=== PATIENT | female | born 1955 | race African-American/Black ===

== ENCOUNTER 2021-06-11 13:43 | Emergency (ER) | payer MEDICARE, OTHER ==
[~2021-06-11] VITALS: Ht 157.5 cm; Wt 58.9 kg
[2021-06-11 17:18] VITALS: BP 169/65
[2021-06-11] MEDS ORDERED: TRAM-48 PO (19:09)
--- NOTE | 2021-06-11 19:10 | PHYS DOC ---
Past Medical History Past Medical History: No Pertinent History Past Surgical History: No Surgical History Additional Past Surgical Histo: teeth extractions Smoking Status: Current Every Day Smoker Alcohol Use: Heavy Additional Information: DRINKS BEER DAILY Drug Use: None General Adult EDM: Chief Complaint: LOWER EXT PAIN HPI: HPI: Patient is a 65 year old female past medical history hypertension presents with a chief complaint of bilateral feet pain and swelling. Patient states symptoms been ongoing for 3 months progressively becoming worse. Patient denies any trauma. Examination of patient's feet shows very minimal swelling. I do not appreciate any deformities cap refill less than 2 seconds and pulses are palpable. Patient has no swelling in the calves. Review of Systems: Review of Systems: Constitutional: Denies fever or chills. [] Eyes: Denies change in visual acuity. [] HENT: Denies nasal congestion or sore throat. [] Respiratory: Denies cough or shortness of breath. [] Cardiovascular: Denies chest pain or edema. [] GI: Denies abdominal pain, nausea, vomiting, bloody stools or diarrhea. [] : Denies dysuria. [] Musculoskeletal: Positive foot pain positive feet swelling Integument: Denies rash. [] Neurologic: Denies headache, focal weakness or sensory changes. [] Endocrine: Denies polyuria or polydipsia. [] Lymphatic: Denies swollen glands. [] Psychiatric: Denies depression or anxiety. [] Heart Score: C/O Chest Pain: N/A Risk Factors: Risk Factors: DM, Current or recent (<one month) smoker, HTN, HLP, family history of CAD, obesity. Risk Scores: Score 0 - 3: 2.5% MACE over next 6 weeks - Discharge Home Score 4 - 6: 20.3% MACE over next 6 weeks - Admit for Clinical Observation Score 7 - 10: 72.7% MACE over next 6 weeks - Early Invasive Strategies Allergies: Allergies: Allergies Coded Allergies Type Severity Reaction Last Updated Verified No Known Drug Allergies 10/18/13 No Physical Exam: PE: Constitutional: Well developed, well nourished, no acute distress, non-toxic appearance. [] HENT: Normocephalic, atraumatic, bilateral external ears normal, oropharynx moist, no oral exudates, nose normal. [] Eyes: PERRLA, EOMI, conjunctiva normal, no discharge. [] Neck: Normal range of motion, no tenderness, supple, no stridor. [] Cardiovascular:Heart rate regular rhythm, no murmur [] Lungs & Thorax: Bilateral breath sounds clear to auscultation [] Abdomen: Bowel sounds normal, soft, no tenderness, no masses, no pulsatile masses. [] Skin: Warm, dry, no erythema, no rash. [] Back: No tenderness, no CVA tenderness. [] Extremities: No tenderness, no cyanosis, no clubbing, ROM intact, no edema. [Very minimal pedal swelling cap refill less than 2 seconds palpable pulses no deformities no open wounds] Neurologic: Alert and oriented X 3, normal motor function, normal sensory function, no focal deficits noted. [] Psychologic: Affect normal, judgement normal, mood normal. [] Current Patient Data: Vital Signs: Vital Signs Date Time Temp Pulse Resp B/P (MAP) Pulse Ox O2 Delivery O2 Flow Rate FiO2 06/11/21 17:18 98.5 67 16 169/65 97 98.5 EKG: EKG: [] Radiology/Procedures: Radiology/Procedures: [] Course & Med Decision Making: Course & Med Decision Making Pertinent Labs and Imaging studies reviewed. (See chart for details) [] Dragon Disclaimer: Dragon Disclaimer: This electronic medical record was generated, in whole or in part, using a voice recognition dictation system. Departure Departure Impression: Primary Impression: Foot pain, bilateral Disposition: 01 HOME / SELF CARE / HOMELESS Condition: STABLE Referrals: NO PCP (PCP) Patient Instructions: Musculoskeletal Pain Additional Instructions: Foot Pain Scripts Tramadol Hcl (ULTRAM) 50 Mg Tablet 1 TAB PO PRN Q6HRS PRN for pain MDD 4 Tablet(s) for 7 Days, #28 TAB 0 Refills Prov: JOLLY SQUIRES DO 06/11/21 JOLLY SQUIRES DO Jun 11, 2021 19:10
[2021-06-11 19:23] LABS: BASO % 1 % (0-3); EOS # 0.1 x10^3/uL (0.0-0.7); EOS % 1 % (0-3); HEMOGLOBIN 16.3 g/dL (12.0-15.5); LYMPH # 1.7 x10^3/uL (1.0-4.8); LYMPH % 46 % (24-48); MEAN CORPUSCULAR HEMOGLOBIN 36 pg (25-35); MEAN CORPUSCULAR HGB CONC 33 g/dL (31-37); MEAN CORPUSCULAR VOLUME 108 fL (79-100); MONO # 0.2 x10^3/uL (0.0-1.1); MONO % 7 % (0-9); NEUT # 1.7 x10^3/uL (1.8-7.7); NEUT % 45 % (31-73); PLATELET COUNT 211 x10^3/uL (140-400); RED BLOOD COUNT 4.56 x10^6/uL (3.50-5.40); RED CELL DISTRIBUTION WIDTH 15.1 % (11.5-14.5); WHITE BLOOD COUNT 3.8 x10^3/uL (4.0-11.0)
[2021-06-11 19:40] LABS: CALCIUM 8.7 mg/dL (8.5-10.1); CREATININE 1.1 mg/dL (0.6-1.0); GFR 60.5; POTASSIUM 3.2 mmol/L (3.5-5.1)
[2021-06-11 19:46] LABS: ALBUMIN 2.7 g/dL (3.4-5.0); ALBUMIN/GLOBULIN RATIO 0.6 (1.0-1.7); TOTAL BILIRUBIN 0.4 mg/dL (0.2-1.0); TOTAL PROTEIN 7.4 g/dL (6.4-8.2)
== END 2021-06-11 19:52 | disposition home or self-care (01) ==
LOC: ER 13:43
DX: M79.672 Pain in left foot (principal); M79.671 Pain in right foot; R22.43 Localized swelling, mass and lump, lower limb, bilateral; F17.200 Nicotine dependence, unspecified, uncomplicated; F10.20 Alcohol dependence, uncomplicated; Y90.9 Presence of alcohol in blood, level not specified
CPT/HCPCS: 36415; 80053; 83880; 85025; 99284

== ENCOUNTER → 2021-07-22 | Outpatient (CLI) | payer MEDICARE, OTHER ==
[~2021-07-22] MED LIST: TRAM-48 PO
--- NOTE | 2021-07-22 16:03 | RAD ---
Bilateral lower extremity arterial duplex ultrasound study without comparison for leg and foot pain, bilateral. TECHNIQUE: Real-time grayscale and color spectral Doppler evaluation of the arteries of lower extremi ties is performed. On the right, there is markedly elevated flow within the common femoral artery, ford ggesting high-grade stenosis in this location. This likely produces flow to the profunda femoral jacob ry which is monophasic. The right SFA and popliteal arteries are patent and demonstrate normal phasic ity and velocities. There is monophasic flow within the right posterior tibial artery, and within the dorsalis pedis artery, possibly due to distal popliteal or proximal runoff vessel stenosis. Anterior tibial artery is patent and biphasic. Peroneal artery is patent, however phasicity is impossible to determine due to venous contamination of the spectral tracing. On the left, all vessels are patent an d biphasic. There is elevated velocity within the proximal superficial femoral artery which may indic ate focal hemodynamically significant stenosis in this distribution. IMPRESSION: 1. Severe stenosis of the right common femoral artery, and probable hemodynamically significant steno sis in one or more runoff vessels on the right as well. 2. Probable hemodynamically significant stenosis of the proximal left SFA. This patient could likely benefit from angiography and attempted endovascular reconstruction by an en dovascular specialist. If so desired, we would be happy to see him in our IR clinic in this regard. Katya agrawal can be made by faxing written order to [phone]. Electronically signed by: Joo Goel MD (07/22/2021 4:00 PM) [id number]
== END ==
LOC: US 13:18
DX: I70.201 Unspecified atherosclerosis of native arteries of extremities, right leg (principal)
CPT/HCPCS: 93925

== ENCOUNTER 2021-08-14 09:03 | Outpatient (CLI) | payer MEDICARE ==
[2021-08-14] VITALS (24 sets, daily range): BP systolic 92–189; BP diastolic 62–105
[~2021-08-14] VITALS: Ht 160 cm; Wt 57.0 kg
[2021-08-14] MEDS ORDERED: LISI20TA18 PO (10:12)
[2021-08-14] MEDS ORDERED: ASPI-630 PO (10:12)
[2021-08-14 10:19] LABS: BASO # 0.1 x10^3/uL (0.0-0.2); BASO % 3 % (0-3); EOS # 0.1 x10^3/uL (0.0-0.7); EOS % 2 % (0-3); HEMATOCRIT 43.8 % (36.0-47.0); HEMOGLOBIN 15.2 g/dL (12.0-15.5); LYMPH # 1.4 x10^3/uL (1.0-4.8); LYMPH % 54 % (24-48); MEAN CORPUSCULAR HEMOGLOBIN 35 pg (25-35); MEAN CORPUSCULAR HGB CONC 35 g/dL (31-37); MEAN CORPUSCULAR VOLUME 100 fL (79-100); MONO # 0.2 x10^3/uL (0.0-1.1); MONO % 7 % (0-9); NEUT # 0.9 x10^3/uL (1.8-7.7); NEUT % 34 % (31-73); PLATELET COUNT 152 x10^3/uL (140-400); RED BLOOD COUNT 4.38 x10^6/uL (3.50-5.40); RED CELL DISTRIBUTION WIDTH 14.1 % (11.5-14.5); WHITE BLOOD COUNT 2.6 x10^3/uL (4.0-11.0)
[2021-08-14 10:23] LABS: CALCIUM 8.3 mg/dL (8.5-10.1); CREATININE 1.1 mg/dL (0.6-1.0); GFR 60.5; POTASSIUM 3.4 mmol/L (3.5-5.1)
[2021-08-14] MEDS ORDERED: IODIXANOL 320 MG/ML 100 ML VIAL. ONE (10:35)
[2021-08-14] MEDS ORDERED: LIDOCAINE WITH 8.4% SOD BICARB 3 ML DISP.SYRIN. ONE ×2 (10:35→12:06)
[2021-08-14 10:36] LABS: PROTHROMBIN TIME PATIENT 13.4 SEC (11.7-14.0)
[2021-08-14] MEDS ORDERED: MIDAZOLAM HCL/PF 5 MG/5 ML VIAL. ONE (10:47)
[2021-08-14] MEDS ORDERED: fentaNYL PF VIAL 250 MCG/5 ML VIAL ONE (10:47)
[2021-08-14] MEDS ORDERED: HEPARIN for IV BOLUS 10,000 UNIT/10 ML VIAL. ONE (10:48)
[2021-08-14] MEDS ORDERED: MIDAZOLAM HCL/PF 5 MG/5 ML VIAL. IV ONE (11:30)
[2021-08-14] MEDS ORDERED: fentaNYL PF VIAL 250 MCG/5 ML VIAL IV ONE (11:30)
[2021-08-14] MEDS ORDERED: LIDOCAINE WITH 8.4% SOD BICARB 3 ML DISP.SYRIN. IJ ONE (11:30)
[2021-08-14] MEDS ORDERED: IODIXANOL 320 MG/ML 100 ML VIAL. IV ONE (12:15)
--- NOTE | 2021-08-14 12:19 | PDOC ---
MODERATE SEDATION ASSESSMENT RISKS/ALTERNATIVES Risks/Alternatives Risks and alternatives of this type of sedation and procedure discussed with: RISK/ALTERNATIVES: Patient H & P ON CHART H & P H & P on chart and reviewed for co-morbid conditions and appropriate labs. H&P ON CHART: Yes STATUS PREG STATUS ASSESSED: Yes MEDS/ALLERGIES REVIEWED Meds/Allergies Reviewed Medications and Allergies including time and route of recently administered narcotics and sedatives. MEDS/ALLERGIES REVIEWED: Yes ASA RATING ASA RATING: II AIRWAY ASSESSMENT Airway Assessment Airway patency, oral function limitations, presence of caps, crowns, dentures, partials, and ability to extend neck assessed. AIRWAY ASSESSMENT: Yes MALLAMPATI SCORE MALLAMPATI SCORE: II PRE-SEDATION ASSESSMENT PRE-SEDATION ASSESSMENT: Yes TRESSA CURTIS MD Aug 14, 2021 12:19
--- NOTE | 2021-08-14 12:23 | PDOC ---
BRIEF OPERATIVE NOTE Pre-Op Diagnosis Bilateral PVD with rest pain and claudication Post-Op Diagnosis same Procedure Performed LLE arteriogram with intervention, RLE arteriogram Surgeon Manasa GAMINO minimal Anesthesia Type: Conscious Sedation Specimens Obtained none Findings Aortoiliac arteries: Patent Left: Moderate tandem proximal SFA stenoses improved s/p 5mm dcb angioplasty. Absent AT, patent gracile TREKKING GUIDE, dominant health Peroneal reconstitutes the DP and PT of the foot. Diffuse small vessel disease. Right: Severe proximal SFA short stenosis and tandem mid SFA moderate stenosis. Intact AT and dominant Peroneal. PT tapers to short occlusion just above the ankle but is reconstituted by the healthy Peroneal. Recommendation - Will bring the patient back for reconstruction of the right SFA in 2-3 weeks. Complications No immediate TRESSA CURTIS MD Aug 14, 2021 12:23
[2021-08-14] MEDS ORDERED: CLOP75TA PO (12:55)
--- NOTE | 2021-08-14 13:35 | RAD ---
Procedure: Diagnostic aortogram and bilateral lower extremity arteriograms, left lower extremity SFA drug coated balloon angioplasty Clinical Indication: Adult female with bilateral lower extremity peripheral vascular disease and rest pain and claudication. The patients prior non-invasive imaging exams are inadequate for precise and proper characterization of the patient's underlying anatomy and pathology necessary for treatment franny nning. Consequently diagnostic angiography is warranted. Sedation: Conscious sedation using a combination of Versed and fentanyl was provided for 88 minutes, including continuous monitoring of the patients heart rate, rhythm, blood pressure, oxygen saturation and level of arousability by a trained independent observer. Antibiotics: None Fluoro Exposure: Kerma-Area Product: 76 Gycm2 Sterility: All elements of maximal sterile barrier technique including the use of a cap, mask, steril e gown, sterile gloves, large sterile sheet, appropriate hand hygiene, and 2% chlorhexidine for cutan eous antisepsis (or acceptable alternative antiseptic per current guidelines) were followed for this procedure. Consent: The procedure was explained in its entirety to the patient or the patients designated repres entative by a member of the treatment team, including a discussion of the risks, benefits and commonl y accepted alternatives to the procedure, as well as the expected consequences of not performing the procedure. Discussion of the risks included, but was not limited to, those that are most frequent an d those that are rare but possibly severe or life-threatening, as well as the possibility of unforese en complications. Time Out: Immediately prior to initiation a procedural pause was conducted in the presence of the mem bers of the treatment team to verify correct patient identity, correct procedure, correct side if zari licable, correct patient position, availability of specialized equipment, review of patients allergie s, and assessment of current level of consciousness and arousability. Technique and Findings: Following informed consent, the patient was prepped and draped in usual steri le fashion. Ultrasound interrogation of the right groin was performed demonstrating patency and compr essibility of the right common femoral vein along with patency of the right common femoral artery. Th e patient's peripheral IV failed, numerous attempts to gain peripheral venous access were unsuccessfu l. Consequently, under ultrasound guidance, a 21-gauge micropuncture was used to access the right com mon femoral vein. Hardcopy ultrasound image was recorded. The needle was exchanged over wire for a 4 Palestinian sheath. This was found to flush and aspirated with ease. This was then used for venous access for the remainder the procedure to facilitate conscious sedation. Under ultrasound guidance once again, the right common femoral artery was cannulated with a 21-gauge micropuncture needle. Hard copy ultrasound image was again recorded. This needle was exchanged over w ade for 5 Palestinian sheath. A flush catheter was advanced in the abdominal aorta and contrast aortography was performed. The aort a is notable for mild multifocal atherosclerosis with no significant stenosis or aneurysm. There is m ild atherosclerosis of the bilateral common iliac arteries as well, with no significant stenosis. The celiac artery, and superior mesenteric artery are both patent, though the ostia are not well seen. T here are single bilateral renal arteries with mild atherosclerosis and no significant stenosis. The c atheter was then retracted to just above the aortic bifurcation and contrast angiography of the pelvi s was performed in dual obliquities. Mild atherosclerosis of the right common iliac artery is redemon strated. More moderate disease is seen in second order divisions of both internal iliac arteries. No significant atherosclerosis of the external iliac or common femoral arteries bilaterally. The catheter was then advanced to the contralateral left common femoral artery, and diagnostic contra st angiography of the left lower extremity was performed. The profunda is patent with mild focal prox imal atherosclerosis, and more severe atherosclerosis of a dominant third order distal branch. There are tandem short segment irregularity is of the proximal left SFA, which appear to include significan t en face disease as well. One or both of these likely correlate with the elevated velocity is seen i n this location on the patient's Doppler ultrasound study. The remainder the SFA is normal in appeara nce. Popliteal artery is notable for only mild atherosclerosis with no significant stenosis. The ante rior tibial artery is not identified. Proximal anterior tibial distribution is perfused by collateral flow from a inferior geniculate artery. The posterior tibial artery is patent, but diminutive throug hout, but does provide in-line flow to the posterior tibial artery of ankle. The peroneal artery is h ealthy and dominant, providing in-line flow to the ankle, where reconstitutes the dorsalis pedis jacob ry which appears somewhat diminutive is well. Arteries distal to the midfoot are diminutive and likel y disease. The patient was then given 5000 units of heparin intravenously. A 4 mm x 40 mm angioplasty balloon wa s used to angioplasty the most prominent proximal left SFA lesion. This was felt to be slightly under sized. Consequently, a 5 mm x 150 mm drug coated balloon was used to angioplasty the entirety of the proximal and mid SFA, covering both tandem areas of stenosis. Post angioplasty angiogram demonstrated excellent endograft appearance with no significant residual stenosis or vascular injury. The balloon was then removed. Diagnostic angiography of the right lower extremity was performed. There is a focal high-grade stenos is of the proximal right SFA over a very short segment. A partially 10 cm distally, there is a second irregular moderate to severe focal stenosis, also short. The remainder the SFA is healthy with brisk flow. Popliteal artery is healthy as well. The anterior tibial and peroneal arteries are healthy and patent throughout their distribution and there is in-line flow to the dorsalis pedis artery. The pos terior tibial arteries diminutive and tapers to occlusion just above the ankle. The posterior tibial artery at the ankle and foot is rapidly reconstituted by the healthy peroneal artery however. The sheath was then exchanged for a star close device which was successfully utilized to obtain hemos tasis. Complications: No immediate Impression: 1. Tandem moderate to severe focal stenoses of the left SFA, markedly improved following drug coated balloon angioplasty 5 mm. This is expected increased distal perfusion and improve symptoms on the lef t. 2. Absence of the left anterior tibial artery. The dorsalis pedis artery is reconstituted by the heal thy peroneal artery. 3. Patent but slow left posterior tibial artery, also reconstituted distally by the peroneal artery. No treatable stenoses. 4. Poor perfusion to the small vessels of the midfoot on the left, likely due to chronic small vessel disease. 5. Severe focal stenosis of proximal SFA with a tandem moderate stenosis shortly downstream. 6. Robust two-vessel runoff on the right, with a short segment distal posterior tibial occlusion, brittany btful clinical significance Recommendations: Following the left leg intervention, this patient should be treated with aspirin and Plavix daily for at least 6 weeks. She will return to the IR suite in 2-3 weeks for right lower extr emity arteriogram with endovascular reconstruction of the right SFA stenoses. Counseling regarding th e importance of smoking cessation was also performed and she is encouraged to seek additional assista nce in this regard if needed. Thank you for the opportunity to participate in the care of your patients. If you've any questions or would like additional information, please do not hesitate to contact me. Electronically signed by: Joo Goel MD (08/14/2021 1:32 PM) [id number]
--- NOTE | 2021-08-14 13:36 | NUR ---
Plavix 75mg Daily x6 weeks, 2 refills called into patient's requested pharmacy per MD order. Patient notified. Will shredder picker today.
--- NOTE | 2021-08-14 17:14 | NUR ---
Pt A&O x4. b/p has been elevate at times. discussed the need for pt to see attending physician regarding this. Pt scheduled for AARO of other leg on 09-01-21. rt groin sit no bleeding or swelling noted. d/c instructions given , questions answered. out to vehicle per w/c. to drive her home
== END 2021-08-14 17:17 | disposition home or self-care (01) ==
LOC: INTRAD 09:03
PROVIDERS: ATTEND Podiatrist
DX: I73.9 Peripheral vascular disease, unspecified (principal); I10 Essential (primary) hypertension; E78.00 Pure hypercholesterolemia, unspecified; F17.210 Nicotine dependence, cigarettes, uncomplicated; Z79.82 Long term (current) use of aspirin; Z79.899 Other long term (current) drug therapy; Z98.890 Other specified postprocedural states; Z72.89 Other problems related to lifestyle
CPT/HCPCS: 36415; 37224; 75625; 75716; 76937; 80048; 85025; 85610; 99152; 99153; C1725; C1760; C1769; C1892; C1894; C2623; J1644; J2250; J3010; J3490; Q9967

== ENCOUNTER 2021-09-01 08:38 | Observation (INO) | payer MEDICARE ==
[2021-09-01] VITALS (21 sets, daily range): BP systolic 60–187; BP diastolic 36–109
[~2021-09-01] VITALS: Ht 157.5 cm; Wt 56.8 kg
[~2021-09-01 08:38] MED LIST changes: +ASPI-630 PO; +CLOP75TA PO; +LISI20TA18 PO
[2021-09-01] MEDS ORDERED: fentaNYL PF VIAL 100 MCG/2 ML VIAL ONE ×2 (09:50→12:36)
[2021-09-01] MEDS ORDERED: MIDAZOLAM HCL/PF 2 MG/2 ML VIAL. ONE (09:50)
[2021-09-01] MEDS ORDERED: FLUMAZENIL 0.5 MG/5 ML VIAL. IV ONE (09:51)
[2021-09-01] MEDS ORDERED: NALOXONE 0.4 MG/ML VIAL. ONE (09:51)
[2021-09-01] MEDS ORDERED: HEPARIN for IV BOLUS 10,000 UNIT/10 ML VIAL. ONE (09:59)
[2021-09-01] MEDS ORDERED: LIDOCAINE WITH 8.4% SOD BICARB 3 ML DISP.SYRIN. ONE (10:02)
[2021-09-01] MEDS ORDERED: IODIXANOL 320 MG/ML 100 ML VIAL. ONE (10:02)
[2021-09-01] MEDS ORDERED: LIDOCAINE WITH 8.4% SOD BICARB 3 ML DISP.SYRIN. INJ ONE (10:15)
[2021-09-01] MEDS ORDERED: IODIXANOL 320 MG/ML 100 ML VIAL. IART ONE (10:15)
[2021-09-01] MEDS ORDERED: HEPARIN for IV BOLUS 10,000 UNIT/10 ML VIAL. IV ONE (10:15)
[2021-09-01] MEDS ORDERED: fentaNYL PF VIAL 100 MCG/2 ML VIAL IV ONE (10:15)
[2021-09-01] MEDS ORDERED: MIDAZOLAM HCL/PF 2 MG/2 ML VIAL. IV ONE (10:15)
--- NOTE | 2021-09-01 11:02 | PDOC ---
BRIEF OPERATIVE NOTE Post-Op Diagnosis PAD and claudication Procedure Performed RLE arteriogram with SFA angioplasty Surgeon Manasa GAMINO minimal Anesthesia Type: Conscious Sedation Specimens Obtained none Findings Tandem severe stenosis of the proximal and mid right SFA improved s/p DCB angioplasty Complications No immediate TRESSA CURTIS MD Sep 01, 2021 11:02
--- NOTE | 2021-09-01 11:03 | PDOC ---
MODERATE SEDATION ASSESSMENT RISKS/ALTERNATIVES Risks/Alternatives Risks and alternatives of this type of sedation and procedure discussed with: RISK/ALTERNATIVES: Patient H & P ON CHART H & P H & P on chart and reviewed for co-morbid conditions and appropriate labs. H&P ON CHART: Yes STATUS PREG STATUS ASSESSED: Yes MEDS/ALLERGIES REVIEWED Meds/Allergies Reviewed Medications and Allergies including time and route of recently administered narcotics and sedatives. MEDS/ALLERGIES REVIEWED: Yes ASA RATING ASA RATING: II AIRWAY ASSESSMENT Airway Assessment Airway patency, oral function limitations, presence of caps, crowns, dentures, partials, and ability to extend neck assessed. AIRWAY ASSESSMENT: Yes MALLAMPATI SCORE MALLAMPATI SCORE: II PRE-SEDATION ASSESSMENT PRE-SEDATION ASSESSMENT: Yes TRESSA CURTIS MD Sep 01, 2021 11:03
[2021-09-01] MEDS ORDERED: ONDANSETRON PF 4 MG/2 ML VIAL. ONE (12:31)
--- NOTE | 2021-09-01 13:03 | NUR ---
At 1215, patient used restroom via bedpan. Left leg remained straight. Upon rolling over, patient's access site began to swell. Small amount of bleeding present. Manual pressure applied. Dr. Goel notified. Patient became flushed, lightheaded. BP dropped, HR dropped. See VS. Patient became nauseated, vomited x2. BM x2. Dr. Goel arrived on unit. Manual pressure held from 2204-0027. Patient placed in reverse trendelenberg, feet elevated. Zofran given, NS bolus given. Symptoms resolved. Pressure applied to L groin from 3357-6878. No longer bleeding, VS stable. Patient to remain flat for 6 hours from 1300.
[2021-09-01] MEDS ORDERED: ONDANSETRON PF 4 MG/2 ML VIAL. IVP ONE (13:15)
[2021-09-01] MEDS ORDERED: fentaNYL PF VIAL 100 MCG/2 ML VIAL IVP ONE (13:15)
--- NOTE | 2021-09-01 14:06 | NUR ---
Report given to Zari OLIVER on 4N. Patient's VS stable. No bleeding at access site. Site marked. Patient A/O, family notified by RN that patient is staying the night. See VS, assessment.
[2021-09-01] MEDS ORDERED: IV NORMAL SALINE 500ML BAG 500 ML IV ONE (14:15)
--- NOTE | 2021-09-01 14:15 | NUR ---
received from cardiovascular post op. she is alert and oriented x4. history completed. dressing to left groin is shadowed and marked. she has swelling was marked where swelling was upon arrival. she has good pedal and post tibial pulse. she is to lie flat until 7 pm.
[2021-09-01] MEDS ORDERED: FLU VACC QUAD 21-22 (6MOS+) PF 0.5 ML SYRINGE. VAX IM ONE (14:45)
--- NOTE | 2021-09-01 15:20 | PDOC1 ---
History and Physical Date of Service: DOS: DATE: 09/01/21 TIME: 15:11 Chief Complaint: Chief Complain: Groin hematoma History of Present Illness: HPI: 65-year-old female with past medical history of peripheral vascular disease and tobacco misuse who comes in for outpatient interventional radiology procedure for angioplasty. Patient underwent successful angioplasty of the right SFA however, after the procedure patient did develop left groin access site hematoma. Patient was given heparin and is on aspirin Plavix at home for her peripheral vascular disease. Immediate direct manual pressure was applied and heparin was withheld. While in the outpatient recovery patient did have a vasovagal episode she was given 500 NS bolus. Patient is currently hemodynamically stable and alert and oriented. Discussed with Dr. Peralta for admission to the hospital for observation. Patient currently is denying any fevers, chest pain, abdominal pain, diarrhea or extreme extremity pains. Past Medical/Surgical History: PMH/PSH: Peripheral vascular disease, tobacco use, daily alcohol drinker. Allergies: Allergies: Coded Allergies: No Known Drug Allergies (Unverified , 10/18/13) Family History: Family History: Reviewed with no relevant findings Social History: Social History: Smoking Status: Current Every Day Smoker Alcohol Use: Heavy Additional Information: DRINKS BEER DAILY Drug Use: None Current Medications: Current Medications Current Medications Midazolam HCl (Versed) 2 mg STK-MED ONCE .ROUTE ; Start 09/01/21 at 09:50; Stop 09/01/21 at 09:50; Status DC Fentanyl Citrate (Fentanyl 2ml Vial) 100 mcg STK-MED ONCE .ROUTE ; Start 09/01/21 at 09:50; Stop 09/01/21 at 09:51; Status DC Flumazenil (Romazicon) 0.5 mg STK-MED ONCE IV ; Start 09/01/21 at 09:51; Stop 09/01/21 at 09:51; Status DC Naloxone HCl (Narcan) 0.4 mg STK-MED ONCE .ROUTE ; Start 09/01/21 at 09:51; Stop 09/01/21 at 09:51; Status DC Heparin Sodium (Porcine) (Heparin Sodium) 10,000 unit STK-MED ONCE .ROUTE ; Start 09/01/21 at 09:59; Stop 09/01/21 at 09:59; Status DC Iodixanol (Visipaque 320) 100 ml STK-MED ONCE .ROUTE ; Start 09/01/21 at 10:02; Stop 09/01/21 at 10:02; Status DC Heparin Sodium/ Sodium Chloride 1,000 ml @ As Directed STK-MED ONCE .ROUTE ; Start 09/01/21 at 10:02; Stop 09/01/21 at 10:02; Status DC Lidocaine HCl (Buffered Lidocaine 1%) 3 ml STK-MED ONCE .ROUTE ; Start 09/01/21 at 10:02; Stop 09/01/21 at 10:02; Status DC Heparin Sodium/ Sodium Chloride (HEPARIN for ARTERIAL LINE FLUSH) 1,000 unit 1X ONCE IART Last administered on 09/01/21at 11:03; Start 09/01/21 at 10:15; Stop 09/01/21 at 10:52; Status DC Heparin Sodium/ Sodium Chloride (HEPARIN for ARTERIAL LINE FLUSH) 1,000 unit 1X ONCE IART Last administered on 09/01/21at 11:03; Start 09/01/21 at 10:15; Stop 09/01/21 at 10:52; Status DC Midazolam HCl (Versed) 2 mg 1X ONCE IV Last administered on 09/01/21at 11:04; Start 09/01/21 at 10:15; Stop 09/01/21 at 10:52; Status DC Fentanyl Citrate (Fentanyl 2ml Vial) 100 mcg 1X ONCE IV Last administered on 09/01/21at 11:05; Start 09/01/21 at 10:15; Stop 09/01/21 at 10:52; Status DC Iodixanol (Visipaque 320) 100 ml 1X ONCE IART Last administered on 09/01/21at 10:15; Start 09/01/21 at 10:15; Stop 09/01/21 at 10:52; Status DC Heparin Sodium (Porcine) (Heparin Sodium) 4,000 unit 1X ONCE IV Last administered on 09/01/21at 11:09; Start 09/01/21 at 10:15; Stop 09/01/21 at 10:52; Status DC Lidocaine HCl (Buffered Lidocaine 1%) 3 ml 1X ONCE INJ Last administered on 09/01/21at 11:00; Start 09/01/21 at 10:15; Stop 09/01/21 at 10:52; Status DC Ondansetron HCl (Zofran) 4 mg STK-MED ONCE .ROUTE ; Start 09/01/21 at 12:31; Stop 09/01/21 at 12:31; Status DC Fentanyl Citrate (Fentanyl 2ml Vial) 100 mcg STK-MED ONCE .ROUTE ; Start 09/01/21 at 12:36; Stop 09/01/21 at 12:36; Status DC Ondansetron HCl (Zofran) 4 mg 1X ONCE IVP Last administered on 09/01/21at 12:15; Start 09/01/21 at 13:15; Stop 09/01/21 at 13:22; Status DC Fentanyl Citrate (Fentanyl 2ml Vial) 25 mcg 1X ONCE IVP Last administered on 09/01/21at 12:30; Start 09/01/21 at 13:15; Stop 09/01/21 at 13:22; Status DC Sodium Chloride 500 ml @ 500 mls/hr 1X ONCE IV Last administered on 09/01/21at 12:30; Start 09/01/21 at 14:15; Stop 09/01/21 at 15:14 Influenza Virus Vaccine Quadrival (Flulaval Quad [id number] Syringe) 0.5 ml ONCE ONCE VAX IM ; Start 09/01/21 at 14:45; Stop 09/01/21 at 14:49; Status DC Active Scripts Active Reported Clopidogrel (Clopidogrel Bisulfate) 75 Mg Tablet 1 Tab PO DAILY Aspirin 81 Mg Tab.chew 1 Tab PO DAILY Lisinopril 20 Mg Tablet 1 Tab PO DAILY ROS: Review of Systems Review of System REVIEW OF SYSTEMS: GENERAL: Denies weakness SKIN: No bruising, hair changes or rashes. EYES: No blurred, double or loss of vision. NOSE AND THROAT: No history of nosebleeds, hoarseness or sore throat. HEART: No history of palpitations, chest pain or shortness of breath on exertion. LUNGS: Denies cough, hemoptysis, wheezing or shortness of breath. GASTROINTESTINAL: Denies changes in appetite, nausea, vomiting, diarrhea or constipation. GENITOURINARY: No history of frequency, urgency, hesitancy or nocturia. NEUROLOGIC: Denies history of numbness, tingling, or tremor. PSYCHIATRIC: No history of panic, anxiety or depression. ENDOCRINE: No history of heat or cold intolerance, polyuria or polydipsia. EXTREMITIES: Denies joint pain, pain on walking or stiffness. Physical Exam: Vital Signs: Vital Signs Date Time Temp Pulse Resp B/P (MAP) Pulse Ox O2 Delivery O2 Flow Rate FiO2 09/01/21 14:58 Room Air 09/01/21 14:55 74 16 94 09/01/21 14:15 2.0 09/01/21 14:15 98.0 83/37 (52) 98.0 Physcial Exam: GEN: No apparent distress. Alert and oriented HEENT: Normal cephalic, atraumatic, external auditory canals are patent EYES: Extraocular muscles are intact, pupil are equally round and reactive to light and accommodation MUSCULOSKELETAL: Well developed , well nourished, good range of motion ENDOCRINE: No thyromegaly was palpated LYMPHATICS: No cervical chain or axillary nodes were noted HEMATOPOIETIC: No bruising NECK: Supple, no JVD, no thyromegaly was noted LUNGS: Clear to auscultation in all lung theodore without rhonchi or wheezing HEART: RRR, S!, S2 present. Peripheral pulses intact, no obvious murmurs noted ABDOMEN: Soft, nontender. Positive bowel sounds, no organomegaly, normal bowel sounds EXTREMITIES: Without clubbing, cyanosis, or edema. Pedal pulses intact. Negative Homans sign NEUROLOGIC: Normal speech and tone. A&O x 3, moves all extremities, no obvious focal deficits PSYCHIATRIC: Normal affect, normal mood. Stable SKIN: No ulcerations or rashes, good skin turgor, no jaundice VASCULAR: Good capillary refill, neurovascular bundle appears to be intact Labs: Labs: No recent labs to review Images: Images No recent images to review Assessment/Plan Assessment/Plan Left groin access site hematoma Rule out pseudoaneurysm History of peripheral vascular disease status post recent angioplasty to the right SFA History of left SFA angioplasty Daily alcohol user Admit to hospitalist service for further management Pending left groin ultrasound Hold aspirin Plavix and heparin for now Observe for alcohol withdrawal Bedrest scd for DVT prophylaxis Cardiac diet CODE STATUS full Discussed with RN and SW Disposition inpatient management as above DPOA: Daughter Justifications for Admission Other Justification RAEANN BELCHER MD Sep 01, 2021 15:20
--- NOTE | 2021-09-01 15:49 | RAD ---
Procedure: Right lower extreme knee arteriogram, angioplasty the right superficial femoral artery. 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 Sedation: Conscious sedation using a combination of Versed and fentanyl was provided for 80 minutes, including continuous monitoring of the patients heart rate, rhythm, blood pressure, oxygen saturation and level of arousability by a trained independent observer. Antibiotics: None Fluoro Exposure: Kerma-Area Product: 39 mGycm2 Sterility: All elements of maximal sterile barrier technique including the use of a cap, mask, steril e gown, sterile gloves, large sterile sheet, appropriate hand hygiene, and 2% chlorhexidine for cutan eous antisepsis (or acceptable alternative antiseptic per current guidelines) were followed for this procedure. Consent: The procedure was explained in its entirety to the patient or the patients designated repres entative by a member of the treatment team, including a discussion of the risks, benefits and commonl y accepted alternatives to the procedure, as well as the expected consequences of not performing the procedure. Discussion of the risks included, but was not limited to, those that are most frequent an d those that are rare but possibly severe or life-threatening, as well as the possibility of unforese en complications. Time Out: Immediately prior to initiation a procedural pause was conducted in the presence of the members of [facility] treatment team to verify correct patient identity, correct procedure, correct side if applicable, c orrect patient position, availability of specialized equipment, review of patients allergies, and ass essment of current level of consciousness and arousability. Technique and Findings: Following informed consent, the patient was prepped and draped in usual steri le fashion. Ultrasound interrogation of the left groin revealed patency of the left common femoral ar kellen. A hardcopy ultrasound image was recorded as a 21-gauge micropuncture was used to gain access to this vessel. The needle was exchanged over wire for a 6 [place] sheath. A catheter and wire were then used to cross the aortic bifurcation, and sheath was advanced to the right external iliac artery. Co ntrast angiography the right lower extremity was then performed, demonstrating high-grade tandem shor t segment stenoses of the proximal right SFA and mid right SFA. The patient was given 5000 units hepa rin intravenously. The stenoses were crossed, and a 5 mm x 150 mm drug coated balloon angioplasty was performed. Follow-up angiography demonstrated excellent radiographic appearance with roughly 20 perc ent residual stenosis of the proximal lesion and minimal residual stenosis of the mid arterial lesion . Flow is brisk. The balloon and catheter were then removed and the sheath was retracted to the ipsil ateral external iliac artery and selective angiography of the left groin was performed to assess for suitability of a closure device. The sheath was then exchanged for a minx closure device which was un successful in achieving hemostasis. Manual compression was applied, and was initially successful, how ever the patient did subsequently develop a small hematoma in the recovery area, and manual compressi on was once again applied for prolonged period of time in recovery, ultimately resulting hemostasis. Complications: Mild left groin hematoma of doubtful clinical significance. Impression: 1. 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 Recommend bilateral lower extremity baseline ABIs in 3 weeks, as well as dual antiplatelet therapy fo r 6 weeks followed by monotherapy for life thereafter. Electronically signed by: Joo Goel MD (09/01/2021 3:47 PM) [id number]
--- NOTE | 2021-09-01 16:53 | RAD ---
EXAM: US LEFT LOWER EXTREMITY ARTERIAL DUPLEX EVAL 09/01/2021 3:36 PM CLINICAL INDICATION: Rule out pseudoaneurysm in left groin. COMPARISON: None TECHNIQUE: Grayscale, color and spectral Doppler ultrasound images of the left groin. FINDINGS: Exam is limited due to soft tissue edema. There is no obvious mass or fluid collection. Th e visualized portion of the left common femoral and superficial femoral arteries are patent with biph asic waveforms. No evidence of pseudoaneurysm. IMPRESSION: No evidence of pseudoaneurysm. Electronically signed by: Khushi Jackson MD (09/01/2021 4:51 PM) [id number]
[2021-09-01] MEDS ORDERED: MORPHINE SULFATE 2 MG/ML INJ. IVP PRN ×2 (20:30→20:45)
[2021-09-01] MEDS: ACETAMINOPHEN 325 MG TABLET. PO PRN (21:09)
[2021-09-02 03:00] VITALS: BP 159/69
[2021-09-02] MEDS: ACETAMINOPHEN 325 MG TABLET. PO PRN (03:52)
[2021-09-02 06:40] VITALS: BP 130/63
--- NOTE | 2021-09-02 08:52 | PDOC ---
[facility] PROGRESS NOTE Date of Service DOS: DATE: 09/02/21 TIME: 08:49 Chief Complaint Chief Complaint Left groin access site hematoma Rule out pseudoaneurysm Postop day one right leg intervention History of peripheral vascular disease status post recent angioplasty to the right SFA History of left SFA angioplasty Daily alcohol user History of Present Illness History of Present Illness 09/02/2021 Patient seen and examined She is up walking Discussed with RN Chart reviewed Her left groin has minimal drainage Clinically stable for discharge I went and put discharge orders in Vitals/I&O Vitals/I&O: Vital Signs Date Time Temp Pulse Resp B/P (MAP) Pulse Ox O2 Delivery O2 Flow Rate FiO2 09/02/21 06:40 98.6 67 20 130/63 (85) 95 Room Air 98.6 09/01/21 14:15 2.0 I & O 09/01/21 09/01/21 09/02/21 15:00 23:00 07:00 Intake Total 500 ml 240 ml 1000 ml Output Total 200 ml Balance 500 ml 40 ml 1000 ml Assessment and Plan Assessmemt and Plan Left groin access site hematoma Rule out pseudoaneurysm History of peripheral vascular disease status post recent angioplasty to the right SFA History of left SFA angioplasty Daily alcohol user I put discharge orders in Comment Review of Relevant I have reviewed the following items felicia (where applicable) has been applied. Medications: Current Medications Medications (Trade) Dose Ordered Sig/Yolanda Route PRN Reason Start Time Stop Time Status Last Admin Dose Admin Heparin Sodium/ Sodium Chloride (HEPARIN for ARTERIAL LINE FLUSH) 1,000 unit 1X ONCE IART 09/01/21 10:15 09/01/21 10:52 DC 09/01/21 11:03 Heparin Sodium/ Sodium Chloride (HEPARIN for ARTERIAL LINE FLUSH) 1,000 unit 1X ONCE IART 09/01/21 10:15 09/01/21 10:52 DC 09/01/21 11:03 Midazolam HCl (Versed) 2 mg 1X ONCE IV 09/01/21 10:15 09/01/21 10:52 DC 09/01/21 11:04 Fentanyl Citrate (Fentanyl 2ml Vial) 100 mcg 1X ONCE IV 09/01/21 10:15 09/01/21 10:52 DC 09/01/21 11:05 Iodixanol (Visipaque 320) 100 ml 1X ONCE IART 09/01/21 10:15 09/01/21 10:52 DC 09/01/21 10:15 Heparin Sodium (Porcine) (Heparin Sodium) 4,000 unit 1X ONCE IV 09/01/21 10:15 09/01/21 10:52 DC 09/01/21 11:09 Lidocaine HCl (Buffered Lidocaine 1%) 3 ml 1X ONCE INJ 09/01/21 10:15 09/01/21 10:52 DC 09/01/21 11:00 Ondansetron HCl (Zofran) 4 mg 1X ONCE IVP 09/01/21 13:15 09/01/21 13:22 DC 09/01/21 12:15 Fentanyl Citrate (Fentanyl 2ml Vial) 25 mcg 1X ONCE IVP 09/01/21 13:15 09/01/21 13:22 DC 09/01/21 12:30 Sodium Chloride 500 ml @ 500 mls/hr 1X ONCE IV 09/01/21 14:15 09/01/21 15:14 DC 09/01/21 12:30 Acetaminophen (Tylenol) 650 mg PRN Q6HRS PRN PO MILD PAIN / TEMP > 100.3'F 09/01/21 20:30 09/02/21 03:52 Justifications for Admission Other Justification DONN THOMSON III DO Sep 02, 2021 08:52
--- NOTE | 2021-09-02 09:10 | NUR ---
Ambulating in room with steady gait. No c/o at this time.
--- NOTE | 2021-09-02 10:30 | NUR ---
Discharge instruction given. No new prescriptions given. Answered questions and concerns. Verbalized understanding. Pt discharged home. Escorted out by w/c and accompanied by male friend.
--- NOTE | 2021-09-02 12:23 | DS ---
DATE OF DISCHARGE: 09/02/2021 ADMITTING DIAGNOSIS: The patient was postop right leg intervention. DISCHARGE DIAGNOSES: Resolving right leg intervention, history of peripheral vascular disease, history of left saphenous artery angioplasty, alcohol use. HOSPITAL COURSE: The patient is a pleasant, middle-aged female who came in for a lower extremity runoff with intervention and postprocedure, she had some bleeding. We admitted the patient overnight for observation. This morning, I saw and examined her. She is doing well. We discharged to home. DISPOSITION: Home. ACTIVITY: As tolerated. DIET: Low sodium. MEDICATIONS: Aspirin 81 a day, Plavix 75 daily, lisinopril 20 a day. TOTAL TIME: [address]: Penelope TID: [id number]
== END 2021-09-02 10:30 | disposition home or self-care (01) ==
LOC: INTRAD 08:38 → 4 SOUTHEST 14:07
PROVIDERS: ADMIT Student in an Organized Health Care Education/Training Program; ATTEND Podiatrist
DX: I70.292 Other atherosclerosis of native arteries of extremities, left leg (principal); I70.92 Chronic total occlusion of artery of the extremities; S30.1XXA Contusion of abdominal wall, initial encounter; F17.200 Nicotine dependence, unspecified, uncomplicated; Z79.82 Long term (current) use of aspirin; Z98.62 Peripheral vascular angioplasty status; Z79.02 Long term (current) use of antithrombotics/antiplatelets; X58.XXXA Exposure to other specified factors, initial encounter; Y92.89 Other specified places as the place of occurrence of the external cause; Y93.89 Activity, other specified; Y99.8 Other external cause status
CPT/HCPCS: 37224; 76937; 93923; 96374; 96375; 99152; 99153; C1760; C1769; C1892; C1894; G0269; G0378; G0379; J1644; J2250; J2405; J3010; J3490; J7040; Q9967